=== PATIENT | male | born 1970 ===

== ENCOUNTER 2023-03-25 04:53 | Day surgery (SDC) | payer OTHER ==
[2023-03-24 10:07] VITALS: BMI 27.1
[2023-03-25] MEDS ORDERED: BACITRACIN ZINC 15 GM TUBE TOPICAL OINTMENT ONE (10:53)
[2023-03-25] MEDS ORDERED: PROPOFOL 40 ML ONE (13:02)
[2023-03-25] MEDS ORDERED: FENTANYL CITRATE/PF 50 MCG/ML VIAL ONE ×2 (13:02→13:46)
[2023-03-25] MEDS ORDERED: ONDANSETRON 4 MG/2 ML VIAL ONE (13:02)
[2023-03-25] MEDS ORDERED: ceFAZolin SODIUM 1 GM VIAL ONE (13:02)
[2023-03-25] MEDS ORDERED: LIDOCAINE HCL/PF 2% SDV 5ML VIAL ONE (13:02)
[2023-03-25] MEDS ORDERED: MIDAZOLAM HCL 2 MG/2 ML SINGLE DOSE VIAL ONE (13:02)
[2023-03-25] MEDS ORDERED: ceFAZolin SODIUM 1 GM VIAL IVPB ONE (13:15)
[2023-03-25] MEDS ORDERED: BACITRACIN ZINC 15 GM TUBE TOPICAL OINTMENT TP ONE (13:48)
[2023-03-25] MEDS ORDERED: oxyCODONE HCL 5 MG TABLET PO PRN (15:34)
[2023-03-25 16:02] VITALS: RESP 18
[2023-03-25 16:47] VITALS: BP 146/84; PULSE 64; TEMP 97.3
== END 2023-03-25 04:55 | disposition home or self-care (01) ==
LOC: JASU-SURG 04:53
PROVIDERS: ATTEND Urology
PROC: 0V503ZZ Destruction of Prostate, Percutaneous Approach (ICD-10-PCS; principal; 2023-03-25 13:00)
DX: C61 Malignant neoplasm of prostate (principal)
CPT/HCPCS: 55873; C2618; 94760; C1769